=== PATIENT | female | born 1995 | race Asian ===

== ENCOUNTER 2024-07-31 19:58 | Emergency (ER) | payer MEDICAID ==
[~2024-07-31] VITALS: Ht 152.4 cm; Wt 50.0 kg
[2024-07-31 20:03] VITALS: O2SAT 98
[2024-07-31 21:18] LABS: BASOPHILS % 0.4 % (0.0-2.0); DIFFERENTIAL COMMENT 0; EOSINOPHILS % 1.3 % (0.0-5.0); HEMATOCRIT. 38.9 % (36.0-48.0); HEMOGLOBIN. 12.3 g/dL (12.0-16.0); LYMPHOCYTES % 25.8 % (20.0-50.0); MEAN CORPUSCULAR HEMOGLOBIN 24.9 pg (28.0-32.0); MEAN CORPUSCULAR HGB CONC 31.6 g/dL (31.0-37.0); MEAN CORPUSCULAR VOLUME 78.7 fL (81.0-99.0); MEAN PLATELET VOLUME 9.9 fl (7.4-10.4); NEUTROPHILS % 64.5 % (40.0-76.0); PLATELET 181 x1000/uL (130-400); RED BLOOD CELL COUNT 4.95 mill/uL (4.2-5.4); RED CELL DISTRIBUTION WIDTH 13.7 % (11.6-14.6); WHITE BLOOD COUNT 11.3 x1000/uL (4.5-11.0)
[2024-07-31 21:28] LABS: CHLORIDE 105 mEq/L (98-107); POTASSIUM 4.2 mEq/L (3.5-5.1); SODIUM 137 mEq/L (136-145)
[2024-07-31 21:29] LABS: CALCIUM 9.5 mg/dL (8.7-10.4); CARBON DIOXIDE 27 mEq/L (21-32)
[2024-07-31 21:34] LABS: CREATININE 0.8 mg/dL (0.6-1.0); GLUCOSE 82 mg/dL (70-105); UREA NITROGEN BLOOD 10 mg/dL (9-23)
[2024-07-31 21:36] LABS: ALANINE AMINOTRANSFERASE 32 IU/L (10-49); ALBUMIN 4.6 g/dL (3.2-4.8); ASPARTATE AMINOTRANSFERASE 29 IU/L (<34)
[2024-07-31 21:37] LABS: BILIRUBIN TOTAL 0.3 mg/dL (0.1-1.0); PROTEIN TOTAL 7.6 g/dL (6.0-8.3)
[2024-07-31 21:43] LABS: HCG SCREEN NEGATIVE
[2024-07-31 22:01] LABS: BILIRUBIN DIRECT < 0.1 mg/dL (<=3.0)
[2024-07-31] MEDS: ONDANSETRON 4MG ODT PO ONE (23:41)
[2024-08-01 00:01] LABS: CLARITY URINE CLEAR (CLEAR); COLOR URINE YELLOW (YELLOW); GLUCOSE URINE NEGATIVE (NEGATIVE); KETONES URINE NEGATIVE (NEGATIVE); LEUKOCYTE ESTERASE URINE NEGATIVE (NEGATIVE); NITRITE URINE NEGATIVE (NEGATIVE); OCCULT BLOOD URINE NEGATIVE (NEGATIVE); PH URINE 6.5 (4.5-8.0); PROTEIN URINE NEGATIVE (NEGATIVE); SPECIFIC GRAVITY URINE 1.011 (1.005-1.030); UROBILINOGEN URINE 0.2 E.U./dL (0.2-1.0)
[2024-08-01] MEDS ORDERED: ONDA4TAB50 MT (00:02)
[2024-08-01 00:21] VITALS: BP 110/68; PULSE 62; RESP 18; TEMP 36.55848; O2SAT 99
== END 2024-08-01 00:22 | disposition home or self-care (01) ==
LOC: ER 19:58
DX: A08.4 Viral intestinal infection, unspecified (principal)
CPT/HCPCS: 99283; 80076; 80048; 81003; 84703; 83690; 85025; 36415; Q0162

== ENCOUNTER 2025-09-19 22:36 | Emergency (ER) | payer MEDICAID ==
[~2025-09-19] VITALS: Ht 152.4 cm; Wt 51.0 kg
[~2025-09-19 22:36] MED LIST: ONDA4TAB50 MT
[2025-09-19 22:50] VITALS: O2SAT 100
[2025-09-19] MEDS ORDERED: SODIUM CHLORIDE 0.9% 1,000 ML IV ONE (23:00)
[2025-09-19 23:47] VITALS: TEMP 37.1
[2025-09-19] MEDS: ACETAMINOPHEN 500MG TABLET PO ONE (23:59)
[2025-09-20 00:16] LABS: BASOPHILS % 0.8 % (0.0-2.0); EOSINOPHILS % 1.0 % (0.0-5.0); HEMATOCRIT. 31.4 % (36.0-48.0); HEMOGLOBIN. 10.2 g/dL (12.0-16.0); LYMPHOCYTES % 30.9 % (20.0-50.0); MEAN PLATELET VOLUME 10.8 fl (7.4-10.4); MONOCYTES % 7.0 % (2.0-8.0); NEUTROPHILS % 60.3 % (40.0-76.0); PLATELET 167 x1000/uL (130-400); RED BLOOD CELL COUNT 3.98 mill/uL (4.2-5.4); RED CELL DISTRIBUTION WIDTH 14.3 % (11.6-14.6)
[2025-09-20 00:25] LABS: HCG SCREEN POSITIVE
[2025-09-20 00:28] LABS: UREA NITROGEN BLOOD < 5 mg/dL (9-23)
[2025-09-20 00:29] LABS: ASPARTATE AMINOTRANSFERASE 47 IU/L (<34)
[2025-09-20 00:30] LABS: BILIRUBIN DIRECT < 0.1 mg/dL (<=3.0); BILIRUBIN TOTAL 0.2 mg/dL (0.1-1.0); PROTEIN TOTAL 6.9 g/dL (6.0-8.3)
[2025-09-20 00:41] LABS: B-HCG QUANTITATIVE 14027 mIU/mL (<6); CREATININE 0.4 mg/dL (0.6-1.0)
[2025-09-20 01:49] LABS: CLARITY URINE CLEAR (CLEAR); COLOR URINE YELLOW (YELLOW); GLUCOSE URINE NEGATIVE (NEGATIVE); KETONES URINE NEGATIVE (NEGATIVE); LEUKOCYTE ESTERASE URINE NEGATIVE (NEGATIVE); NITRITE URINE NEGATIVE (NEGATIVE); OCCULT BLOOD URINE NEGATIVE (NEGATIVE); PH URINE 6.5 (4.5-8.0); PROTEIN URINE NEGATIVE (NEGATIVE); SPECIFIC GRAVITY URINE 1.002 (1.005-1.030); UROBILINOGEN URINE 0.2 E.U./dL (0.2-1.0)
[2025-09-20 02:45] VITALS: BP 104/60; PULSE 100; RESP 18; O2SAT 97
== END 2025-09-20 02:49 | disposition home or self-care (01) ==
LOC: ER 22:36
DX: O34.02 Maternal care for unspecified congenital malformation of uterus, second trimester (principal); R10.9 Unspecified abdominal pain; Z3A.17 17 weeks gestation of pregnancy
CPT/HCPCS: 99284; 76805; 80076; 80048; 84703; 84702; 83690; 83735; 85025; 86850; 86900; 86901; 36415; 81003; J7030